=== PATIENT | male | born 1975 | race Caucasian/White ===

== ENCOUNTER → 2021-11-08 | Outpatient (CLI) | payer OTHER | LOC: US 09:57 | DX: R09.89 Other specified symptoms and signs involving the circulatory and respiratory systems (principal) | CPT/HCPCS: 93922; 93925 ==

== ENCOUNTER 2021-11-27 20:00 | Emergency (ER) | payer OTHER | END 2021-11-27 21:35 | disposition left against medical advice (07) | LOC: ER1 20:00 | DX: Z53.21 Procedure and treatment not carried out due to patient leaving prior to being seen by health care provider (principal) ==